=== PATIENT | male | born 1965 | race Caucasian/White ===

== ENCOUNTER 2016-05-04 14:02 | Emergency (ER) | payer OTHER ==
[2016-05-04 15:31] VITALS: BP 164/93
--- NOTE | 2016-05-04 15:32 | PROVIDER DOCUMENTATION ---
HPI-General Adult - General Chief Complaint: Laceration[s] Stated Complaint: lac to thumb Time Seen by Provider: 05/04/16 14:51 Source: patient - History of Present Illness -Gen Adult Nature of Presenting Problems: 50 yo WM cut his hand with razor knife when applying window tint just [employer]. UTD on tetanus Location of Pain/Injury: reports: hand(s), other (right thumb) Pain Radiation: reports: no radiation Severity: reports: mild Onset/Duration: reports: just prior to arrival Timing: reports: improving Context/Activities at Onset: reports: other (see HPI) Associated Symptoms: reports: anxiety Similar Symptoms Previously?: No Recently seen or treated by another doctor?: No Review of Systems - Adult - REVIEW OF SYSTEMS - ADULT Constitutional: reports: no symptoms reported Cardiovascular: reports: no symptoms reported Respiratory: reports: no symptoms reported Gastrointestinal: reports: no symptoms reported Psychiatric: reports: no symptoms reported Hematologic/Lymphatic: reports: no symptoms reported Past History - Adult - PAST MEDICAL HISTORY-ADULT Review of Records: reports: Old Records Reviewed, Nursing Assessment Review, Medications Reviewed, Social history reviewed & non-contributory. Cardiovascular: reports: HTN Respiratory: reports: denies history Gastrointestinal: reports: denies history Musculoskeletal: reports: denies history Endocrine/Immune: reports: denies history - IMMUNIZATION STATUS Childhood Immunizations: UTD, See Nurse Assessment - FAMILY HISTORY Family History: reviewed, not pertinent - SOCIAL HISTORY Smoking: cigarettes Substance Use: none/never Alcohol Use Frequency: never Living Situation: family Physical Exam-General - PHYSICAL EXAM-ADULT Initial Vital Signs Reviewed: Yes - CONSTITUTIONAL General Appearance: appears well, alert - CARDIOVASCULAR Cardiovascular: normal peripheral pulses, regular rate, rhythm - SKIN Integumentary: normal color, normal turgor, laceration(s) (1.5 cm v shaped lactertion on R thumb at lateral edge of interphalangeal joint. It has sealed off and remains so even with motion. His motor/tendon functionis completely intact.) Departure - Departure Time of Disposition Order: 15:33 DIAGNOSIS: Laceration of right thumb without complication Qualifiers: Encounter type: initial encounter Qualified Code(s): S61.011A - Laceration without foreign body of right thumb without damage to nail, initial encounter Disposition: HOME 01 Certified Medical Emergency: Urgent Condition: Stable Additional Instructions: Keep splint on for 2-3 days. Keep clean and dry
== END 2016-05-04 15:47 | disposition home or self-care (01) ==
LOC: ED 14:02
DX: S61.011A Laceration without foreign body of right thumb without damage to nail, initial encounter (principal); X58.XXXA Exposure to other specified factors, initial encounter; F17.210 Nicotine dependence, cigarettes, uncomplicated; I10 Essential (primary) hypertension